=== PATIENT | female | born 1930 | race Caucasian/White ===

== ENCOUNTER 2018-11-08 17:45 | Emergency (ER) | payer OTHER ==
[~2018-11-08] VITALS: Ht 162.6 cm; Wt 53.2 kg
[2018-11-08 19:59] VITALS: BP 157/82
== END 2018-11-08 19:59 | disposition home or self-care (01) ==
LOC: ED 17:45
DX: S01.81XA Laceration without foreign body of other part of head, initial encounter (principal); S09.8XXA Other specified injuries of head, initial encounter; W22.8XXA Striking against or struck by other objects, initial encounter; Y93.89 Activity, other specified; Y92.89 Other specified places as the place of occurrence of the external cause; Y99.8 Other external cause status
CPT/HCPCS: Q0092

== ENCOUNTER 2020-05-01 20:56 | Emergency (ER) | payer OTHER ==
[~2020-05-01] VITALS: Ht 165.1 cm; Wt 59.0 kg
[2020-05-01 21:04] VITALS: Ht 165.1 cm; Wt 59.0 kg
[2020-05-01 21:55] LABS: BASOPHIL % 0.5 % (0-2); PLATELET COUNT 213 x10^3mcL (130-400)
[2020-05-01 21:58] LABS: UA SPECIFIC GRAVITY 1.025 (1.005-1.035); microscopic required? YES; urine erythrocyte 1+ (NEGATIVE)
[2020-05-01 22:08] LABS: CALCIUM 8.6 mg/dL (8.5-10.1); CARBON DIOXIDE 23.1 mmol/L (21-32); CHLORIDE SERUM 104 mmol/L (98-107); CREATININE SERUM 0.7 mg/dL (0.6-1.0); GLUCOSE SERUM 95 mg/dL (74-106); POTASSIUM SERUM 4.7 mmol/L (3.5-5.1); SODIUM SERUM 136 mmol/L (136-145)
[2020-05-01 22:12] LABS: ALKALINE PHOSPHATASE 115 U/L (46-116); ALT/SGPT 49 U/L (14-59); AST/SGOT 46 U/L (15-37); BILIRUBIN TOTAL 0.4 mg/dL (0.20-1.00); TOTAL PROTEIN, SERUM 6.4 g/dL (6.4-8.2)
[2020-05-01 22:16] LABS: ALBUMIN 3.1 g/dL (3.4-5.0)
[2020-05-02 04:11] VITALS: BP 166/78
== END 2020-05-02 04:11 | disposition short-term general hospital (02) ==
LOC: ED 20:56
PROVIDERS: Student in an Organized Health Care Education/Training Program
DX: N39.0 Urinary tract infection, site not specified (principal); G45.9 Transient cerebral ischemic attack, unspecified; R55 Syncope and collapse; R41.0 Disorientation, unspecified; M25.551 Pain in right hip; M25.552 Pain in left hip; M54.2 Cervicalgia; Z90.710 Acquired absence of both cervix and uterus; W18.39XA Other fall on same level, initial encounter; Y93.89 Activity, other specified; Y92.89 Other specified places as the place of occurrence of the external cause; Y99.8 Other external cause status
CPT/HCPCS: J0696; Q0092